=== PATIENT | female | born 2000 | race Caucasian/White ===

== ENCOUNTER 2022-01-27 11:43 | Emergency (ER) | payer MEDICAID ==
[~2022-01-27] VITALS: Ht 162.6 cm; Wt 53.6 kg
[2022-01-27 12:17] VITALS: BP 116/68
[2022-01-27 12:52] LABS: URINE HCG NEGATIVE (NEG)
[2022-01-27 12:54] LABS: BASOPHILS % (AUTO) 0.3 % (0-1); EOSINOPHILS # (AUTO) 0.1 X10'3 (0-0.9); EOSINOPHILS % (AUTO) 0.8 % (0-6); HEMATOCRIT 41.2 % (35.0-45.0); HEMOGLOBIN 13.8 g/dl (12.0-16.0); LYMPHOCYTES # (AUTO) 1.9 X10'3 (1.1-4.8); LYMPHOCYTES % (AUTO) 16.6 % (21-51); MEAN CORPUSCULAR HGB CONC 33.6 g/dL (33.0-36.5); MEAN CORPUSCULAR VOLUME 89.2 FL (78-98); MEAN PLATELET VOLUME 7.7 FL (7.4-10.4); MONOCYTES # (AUTO) 0.8 X10'3 (0-0.9); NEUTROPHILS # (AUTO) 8.4 X10'3 (1.8-7.7); NEUTROPHILS % (AUTO) 75.3 % (42-75); PLATELET COUNT 300 X10'3 (140-440); RED BLOOD COUNT 4.61 X10'6 (4.20-5.60); RED CELL DISTRIBUTION WIDTH 13.9 % (11.5-14.5); WHITE BLOOD COUNT 11.2 X10'3 (4.5-11.0)
[2022-01-27 12:55] LABS: CLARITY,URINE CLOUDY (Clear); COLOR,URINE YELLOW (Yellow); GLUCOSE, URINE NEGATIVE (Neg); KETONES,URINE 15 mg/dl (Neg); LEUKOCYTE ESTERASE ,URINE MODERATE (Neg); NITRITES, URINE POSITIVE (Neg); OCCULT BLOOD,URINE LARGE (Neg); PROTEIN,URINE 100 mg/dl (Neg); UROBILINOGEN,URINE 0.2 E.U/dL (0.2-1.0)
[2022-01-27 12:57] LABS: UA COLLECTION TYPE CLN CATCH MIDSTREAM
[2022-01-27 13:00] LABS: WBC,URINE TNTC /HPF (0-4)
[2022-01-27 13:01] LABS: BACTERIA,URINE 4+ /HPF (Neg); MUCUS STRANDS NONE SEEN /LPF (Neg); RBC,URINE 20-50 /HPF (0-2); SQUAMOUS EPITHELIAL CELL,UR NONE SEEN /LPF (FEW); WBC CLUMPS,URINE MANY /HPF (NEGATIVE)
[2022-01-27 13:06] LABS: ALANINE AMINOTRANSFERASE 14 U/L (12-78); ALBUMIN 4.9 G/DL (3.4-5.0); ALBUMIN/GLOBULIN RATIO 1.3 (1.1-1.5); ALKALINE PHOSPHATASE 62 IU/L (20-180); ANION GAP 11 (8-16); ASPARTATE AMINO TRANSFERASE 18 U/L (10-37); BILIRUBIN,TOTAL 1.1 MG/DL (0.1-1.0); BLOOD UREA NITROGEN 10 MG/DL (7-18); BUN/CREATININE RATIO 14.3 (6.6-38.0); CALCIUM 9.3 MG/DL (8.5-10.1); CHLORIDE 103 MMOL/L (99-107); GLUCOSE 86 MG/DL (70-104); LIPASE < 50 U/L (73-393); POTASSIUM 3.4 MMOL/L (3.5-5.1); SODIUM 139 MMOL/L (135-145); TOTAL CARBON DIOXIDE 24.9 MMOL/L (24-32); TOTAL PROTEIN 8.7 G/DL (6.4-8.2); eGFR > 90 ML/MIN
[2022-01-27] MEDS ORDERED: normal saline 1000ML IV soln IVB ONE (13:10)
[2022-01-27] MEDS ORDERED: morphine 4 MG/ML inj SYRINge IV ONE (13:10)
[2022-01-27] MEDS ORDERED: ondansetron/PF 4mg/2ml inj IV ONE (13:10)
[2022-01-27] MEDS ORDERED: CefTRIAXone/D5W-Rocephin 1gm 50 ML IV ONE (13:10)
[2022-01-27] MEDS ORDERED: iohexol 300mg/ml 100ml inj. ONE (13:40)
[2022-01-27] MEDS ORDERED: CEPH-585 PO (14:30)
[2022-01-27] MEDS ORDERED: acetaminophen 325mg tablet PO ONE (14:55)
== END 2022-01-27 17:16 | disposition home or self-care (01) ==
LOC: ER 11:44
DX: N10 Acute pyelonephritis (principal); Z88.0 Allergy status to penicillin
CPT/HCPCS: 36415; 74177; 80053; 81001; 81025; 83690; 85025; 87077; 87088; 87186; 96365; 96375; 99285; J0696; J2270; J2405; J3490; J7030; Q9967

== ENCOUNTER 2022-05-29 21:33 | Emergency (ER) | payer MEDICAID ==
[~2022-05-29] VITALS: Ht 162.6 cm; Wt 52.0 kg
[~2022-05-29 21:33] MED LIST: CEPH-585 PO
[2022-05-29 21:41] VITALS: BP 94/57
== END 2022-05-30 00:44 | disposition left against medical advice (07) ==
LOC: ER 21:34
DX: R56.9 Unspecified convulsions (principal); Z53.21 Procedure and treatment not carried out due to patient leaving prior to being seen by health care provider

== ENCOUNTER 2022-09-24 01:55 | Emergency (ER) | payer MEDICAID ==
[~2022-09-24] VITALS: Ht 162.6 cm; Wt 50.0 kg
--- NOTE | 2022-09-24 03:34 | NUR ---
ASSUMING CARE OF PT MD AT BEDSIDE
[2022-09-24] MEDS ORDERED: normal saline 1000ML IV soln IVB ONE (03:40)
[2022-09-24] MEDS ORDERED: pantoprazole 40 MG vial IV ONE (03:40)
[2022-09-24] MEDS ORDERED: ondansetron/PF 4mg/2ml inj IV ONE (03:40)
[2022-09-24] MEDS ORDERED: pantoprazole 40MG/NS 100ML BAG 100 ML IV ONE (04:10)
[2022-09-24 04:14] LABS: BASOPHILS % (AUTO) 0.3 % (0-1); EOSINOPHILS # (AUTO) 0.1 X10'3 (0-0.9); EOSINOPHILS % (AUTO) 0.6 % (0-6); HEMATOCRIT 38.3 % (35.0-45.0); MEAN CORPUSCULAR HEMOGLOBIN 30.7 PG (27.0-31.0); MEAN CORPUSCULAR HGB CONC 33.9 g/dL (33.0-36.5); MEAN CORPUSCULAR VOLUME 90.6 FL (78-98); MEAN PLATELET VOLUME 7.6 FL (7.4-10.4); MONOCYTES # (AUTO) 0.9 X10'3 (0-0.9); MONOCYTES % (AUTO) 5.9 % (2-12); NEUTROPHILS # (AUTO) 12.9 X10'3 (1.8-7.7); NEUTROPHILS % (AUTO) 86.2 % (42-75); PLATELET COUNT 247 X10'3 (140-440); RED BLOOD COUNT 4.23 X10'6 (4.20-5.60); RED CELL DISTRIBUTION WIDTH 13.5 % (11.5-14.5)
[2022-09-24 04:25] LABS: HCG SERUM QL NEGATIVE
[2022-09-24 04:27] LABS: ALANINE AMINOTRANSFERASE 15 U/L (12-78); ALBUMIN 3.9 G/DL (3.4-5.0); ALBUMIN/GLOBULIN RATIO 1.1 (1.1-1.5); ALKALINE PHOSPHATASE 53 IU/L (46-116); ANION GAP 8 (8-16); ASPARTATE AMINO TRANSFERASE 24 U/L (10-37); BILIRUBIN,TOTAL 0.4 MG/DL (0.1-1.0); BLOOD UREA NITROGEN 7 MG/DL (7-18); BUN/CREATININE RATIO 9.9 (6.6-38.0); CALCIUM 8.8 MG/DL (8.5-10.1); CHLORIDE 104 MMOL/L (99-107); CREATININE 0.71 MG/DL (0.40-0.90); GLUCOSE 110 MG/DL (70-104); LIPASE 80 U/L (73-393); POTASSIUM 3.6 MMOL/L (3.5-5.1); SODIUM 138 MMOL/L (135-145); TOTAL CARBON DIOXIDE 26.2 MMOL/L (24-32); TOTAL PROTEIN 7.6 G/DL (6.4-8.2); eGFR > 90 ML/MIN
--- NOTE | 2022-09-24 04:55 | NUR ---
CC UA SPECIMEN SENT TO LAB IVF COMPLETED
[2022-09-24 05:11] LABS: COLOR,URINE DARK YELLOW (Yellow); GLUCOSE, URINE NEGATIVE (Neg); KETONES,URINE 15 mg/dl (Neg); LEUKOCYTE ESTERASE ,URINE NEGATIVE (Neg); NITRITES, URINE NEGATIVE (Neg); OCCULT BLOOD,URINE NEGATIVE (Neg); PH,URINE 6.5 (4.8-8.0); PROTEIN,URINE TRACE mg/dl (Neg); UA COLLECTION TYPE NON-SPECIFIED
[2022-09-24 05:12] LABS: CLARITY,URINE SLIGHTLY CLOUDY (Clear)
[2022-09-24 05:22] LABS: BACTERIA,URINE 2+ /HPF (Neg); MUCUS STRANDS MANY /LPF (Neg); RBC,URINE NONE SEEN /HPF (0-2); SQUAMOUS EPITHELIAL CELL,UR MANY /LPF (FEW)
[2022-09-24] MEDS ORDERED: PANT-47 PO (05:37)
[2022-09-24 05:47] VITALS: BP 98/58
== END 2022-09-24 05:50 | disposition home or self-care (01) ==
LOC: ER 01:56
DX: R10.84 Generalized abdominal pain (principal); Z88.0 Allergy status to penicillin; Z79.899 Other long term (current) drug therapy
CPT/HCPCS: 36415; 80053; 81001; 83690; 84703; 85025; 96365; 96375; 99285; C9113; J2405; J7030

== ENCOUNTER 2023-04-05 19:21 | Emergency (ER) | payer MEDICAID ==
[~2023-04-05] VITALS: Ht 167.6 cm; Wt 49.0 kg
[~2023-04-05 19:21] MED LIST changes: -CEPH-585 PO; +PANT-47 PO
[2023-04-05 19:27] VITALS: BP 102/66; PULSE 71; RESP 16; TEMP 98.7; O2SAT 100
== END 2023-04-05 23:00 | disposition left against medical advice (07) ==
LOC: ER 19:22
DX: R56.9 Unspecified convulsions (principal); Z53.21 Procedure and treatment not carried out due to patient leaving prior to being seen by health care provider
CPT/HCPCS: 99281